=== PATIENT | female | born 1950 | race Caucasian/White ===

== ENCOUNTER 2024-02-05 17:26 | Inpatient (IN) | payer MEDICARE ==
[~2024-02-05] VITALS: Ht 170.2 cm; Wt 67.6 kg
[~2024-02-05 17:26] MED LIST: FLUO-126 PO
[2024-02-05 21:00] VITALS: BP 105/60; PULSE 70; RESP 20; TEMP 97.7; O2SAT 90
[2024-02-05 21:22] VITALS: BP 105/60; PULSE 70; RESP 20; TEMP 97.7; O2SAT 90
[2024-02-05] MEDS ORDERED: DIVA1TAB37 PO (21:34)
[2024-02-05] MEDS ORDERED: ATOR40TA52 PO (21:34)
[2024-02-05] MEDS ORDERED: FAMO-12 PO (21:34)
[2024-02-05] MEDS ORDERED: HYDRX10T PO (21:34)
[2024-02-05] MEDS ORDERED: INSU100I54 SC (21:34)
[2024-02-05] MEDS ORDERED: HYDR1TAB97 PO (21:34)
[2024-02-05] MEDS ORDERED: OLAN1TAB7 PO (21:34)
[2024-02-05] MEDS ORDERED: INSUINJ37 SC (21:34)
[2024-02-05] MEDS ORDERED: ONDANSETRON HCL 4 MG/2 ML VIAL IV PRN (22:00)
[2024-02-05] MEDS ORDERED: NITROGLYCERIN 0.4 MG SL TAB SL PRN (22:00)
[2024-02-05] MEDS ORDERED: MORPHINE SULFATE INJ 2 MG/ml SYRG IV PRN (22:00)
[2024-02-05 22:59] LABS: Basophils # (auto) 0 10 ^3/uL (0-0.2); Basophils % (auto) 0.1 % (0.0-2.0); Eosinophils # (auto) 0 10 ^3/uL (0-0.8); Eosinophils % (auto) 0.1 % (0.0-7.0); Hematocrit 34.9 % (36.0-46.0); Hemoglobin 11.2 g/dL (12.2-16.2); Lymphocytes # (auto) 2.6 10 ^3/uL (0.4-5.4); Lymphocytes % (auto) 17.1 % (10.0-50.0); Mean Corpuscular Hemoglobin 30.1 pg (28.0-32.0); Mean Corpuscular Volume 94.1 fL (80.0-100.0); Monocytes # (auto) 1.8 10 ^3/uL (0-1.3); Monocytes % (auto) 11.7 % (0.0-12.0); Nucleated Red Blood Cells % 0.1 %; Red Blood Cells 3.71 10^6/uL (4.0-5.20); Red Cell Distribution Width 16.8 % (11.8-14.3); White Blood Cell 15.4 10^3/uL (4.4-10.8)
[2024-02-05 23:20] LABS: Alanine Aminotransferase 407 U/L (7-40); Albumin 3.5 g/dL (3.2-4.8); Alkaline Phosphatase 171 U/L (46-116); Anion Gap 14 (5-15); Aspartate Aminotransferase 730 U/L (13-40); BUN/Creatinine Ratio 29.3 (10.0-20.0); Bilirubin, Total 0.9 mg/dL (0.2-1.0); Blood Urea Nitrogen 46 mg/dL (9-23); Calcium 9.8 mg/dL (8.7-10.4); Carbon Dioxide 21 mmol/L (20-30); Chloride 103 mmol/L (98-107); Glucose 140 mg/dL (74-106); Sodium 138 mmol/L (136-145)
[2024-02-05 23:24] LABS: Lactic Acid w/Reflex 3.4 mmol/L (0.4-2.0)
[2024-02-06 00:09] LABS: INR 1.32 (0.9-1.15); Partial Thromboplastin Time 26.8 SEC (24.5-34.5); Prothrombin Time 13.7 sec (9.3-11.8)
[2024-02-06 02:07] LABS: Urine Bacteria MANY /hpf (None Seen); Urine Blood TRACE /uL (Negative); Urine Clarity Clear (Clear); Urine Color Yellow (Yellow); Urine Hyaline Cast FEW /lpf (0 - 2); Urine Mucus FEW (None Seen); Urine Protein, UAD 1+ (Negative); Urine Urobilinogen 2 mg/dL (Negative); Urine WBC 28 /hpf (0 - 5); Urine pH 5.5 (5.0-9.0)
[2024-02-06 02:09] LABS: Urine Specific Gravity > 1.050 (1.001-1.035)
[2024-02-06] MEDS: cefTRIAXone 1GM/50ML D5W 50 ML IV SCH (03:30)
[2024-02-06] MEDS: ALBUMIN 5% 250 ML IV ONE (03:30)
[2024-02-06] MEDS: HEPARIN DRIP/D5W 100UNITS/ML 250 ML IV SCH ×2 (03:43→12:06)
[2024-02-06 05:00] VITALS: BP 111/91; PULSE 96; RESP 19; TEMP 99.3; O2SAT 90
[2024-02-06] MEDS: metroNIDAZOLE 500MG/100ML 100 ML IV SCH (07:39)
[2024-02-06 08:00] VITALS: PULSE 100
[2024-02-06] MEDS: ASPirin 325 MG TAB PO ONE (08:53)
[2024-02-06] MEDS: FUROSEMIDE 20 MG/2 ML VIAL IV SCH (08:55)
[2024-02-06 08:56] VITALS: BP 95/41; PULSE 106; RESP 26; TEMP 97.5; O2SAT 96
[2024-02-06] MEDS ORDERED: CLOP75TA28 PO (10:39)
[2024-02-06 11:28] LABS: INR 1.63 (0.9-1.15); Partial Thromboplastin Time 39.6 SEC (24.5-34.5); Prothrombin Time 16.7 sec (9.3-11.8)
[2024-02-06] MEDS ORDERED: MIDAZOLAM HCL 2MG/2ML 2ml VIAL (1mg/ml) ONE (13:11)
[2024-02-06] MEDS ORDERED: MIDAZOLAM DRIP 50 mg/50mL 50 ML IV ONE (13:11)
[2024-02-06] MEDS ORDERED: NOREPINEPHRINE 8 MG/250ML KIT 250 ML IV ONE (13:11)
[2024-02-06 13:29] LABS: INR 1.89 (0.9-1.15); Partial Thromboplastin Time 40.4 SEC (24.5-34.5); Prothrombin Time 19.1 sec (9.3-11.8)
[2024-02-06] MEDS ORDERED: ATROPINE SULF 1 MG/10ml SYR IV ONE (16:30)
[2024-02-06 17:12] LABS: Mean Corpuscular Volume 98.8 fL (80.0-100.0)
[2024-02-06 17:14] LABS: Hematocrit 38.8 % (36.0-46.0); Mean Corpuscular Hemoglobin 30.6 pg (28.0-32.0); Red Blood Cells 3.93 10^6/uL (4.0-5.20); Red Cell Distribution Width 17.8 % (11.8-14.3); White Blood Cell 24.1 10^3/uL (4.4-10.8)
[2024-02-06 17:22] LABS: Basophils % (manual) 0 (0.0-2.0); Blast Cells 0; Eosinophils % (manual) 0 (0-7); Metamyelocytes % 0; Myelocytes % 0; Promyelocytes % 0; Reactive Lymphocytes 0
[2024-02-06 18:58] LABS: Band Neutrophils % (manual) 2; Lymphocytes % (manual) 29 (10.0-50.0); Monocytes % (manual) 6 (0-12)
[2024-02-06 18:59] LABS: Platelet Estimate Adequate
[2024-02-07] MEDS ORDERED: ASPirin 81 mg TAB PO SCH (10:00)
== END 2024-02-06 19:02 ==
LOC: TELE-CENTR 21:06
PROVIDERS: ADMIT Internal Medicine; ATTEND Internal Medicine
PROC: 5A12012 Performance of Cardiac Output, Single, Manual (ICD-10-PCS; principal; 2024-02-06)
PROC: 0BH17EZ Insertion of Endotracheal Airway into Trachea, Via Natural or Artificial Opening (ICD-10-PCS; 2024-02-06)
DX: I50.21 Acute systolic (congestive) heart failure (principal); J96.00 Acute respiratory failure, unspecified whether with hypoxia or hypercapnia; I21.A1 Myocardial infarction type 2; N17.9 Acute kidney failure, unspecified; I46.9 Cardiac arrest, cause unspecified; F41.9 Anxiety disorder, unspecified; F03.90 Unspecified dementia, unspecified severity, without behavioral disturbance, psychotic disturbance, mood disturbance, and anxiety; R74.01 Elevation of levels of liver transaminase levels; E11.9 Type 2 diabetes mellitus without complications; Z79.4 Long term (current) use of insulin; Z83.3 Family history of diabetes mellitus
CPT/HCPCS: 36415; 74176; 76705; 80053; 81001; 82962; 83605; 83880; 84484; 85007; 85025; 85027; 85610; 85730; 87081; 92950; 93005; 93306; G0378; J2250; J3490